=== PATIENT | male | born 2000 | race African-American/Black ===

== ENCOUNTER 2020-03-18 20:35 | Emergency (ER) ==
--- NOTE | 2020-03-18 21:07 | RAD ---
XR Chest 1 View Portable HISTORY: Altered mental status, syncope COMPARISON: None FINDINGS: The heart size is normal. The lungs are well expanded without focal areas of consolidation, pneumothorax or pleural effusions. IMPRESSION: No radiographic evidence of acute cardiopulmonary process.
[2020-03-18 21:12] LABS: #Lymphocytes 1.7 thou/uL (1.20-3.40); #Monocytes 0.6 thou/uL (0.11-0.59); #Neutrophils 3.5 thou/uL (1.40-6.50); %Basophils 0.3 % (0.0-1.0); %Eosinophils 0.8 % (0.0-10.0); %Lymphocytes 29.2 % (28.0-48.0); %Monocytes 9.9 % (0.0-4.0); %Neutrophils 59.9 % (31.0-61.0); Hemoglobin 12.9 g/dL (14.0-18.0); Mean Corpuscular HGB CONC 33.8 g/dL (32.0-36.0); Mean Corpuscular Hemoglobin 31.7 pg (25.0-35.0); Mean Corpuscular Volume 93.9 fL (78.0-98.0); Mean Platelet Volume 10.1 fL (7.4-10.4); Platelet Count 189 thou/uL (130-400); RBC Distribution Width 10.8 % (11.5-14.5); Red Blood Cell (RBC) Count 4.07 mill/uL (4.00-5.20); White Blood Cell (WBC) Count 5.9 thou/uL (4.8-10.8)
--- NOTE | 2020-03-18 21:20 | CT ---
CT BRAIN WITHOUT CONTRAST: HISTORY: Altered mental status, syncope FINDINGS: No evidence of acute infarct, hemorrhage, midline shift or abnormal extra-axial fluid collections is seen. The ventricular size is appropriate and the basilar cisterns are patent. The bony calvarium is intact. The visualized paranasal sinuses and mastoid air cells are well aerated. IMPRESSION: No CT evidence of acute intracranial process.
[2020-03-18 21:32] LABS: Acetaminophen Less than 6.0 mcg/mL (10.0-30.0); Alcohol Less than 10 mg/dL (Less than 10); Magnesium 1.6 mg/dL (1.7-2.2); Salicylate Less than 8.0 mg/dL (15.0-30.0)
[2020-03-18 21:33] LABS: ALT (SGPT) 21 U/L (8-55); AST (SGOT) 30 U/L (10-45); Alkaline Phosphatase 62 U/L (50-130); Anion Gap 11 mmol/L (10-20); BUN (Urea Nitrogen) 6 mg/dL (8.4-21.0); Bilirubin, Total 0.8 mg/dL (0.2-1.2); Calc. Creatinine Clearance 0 mL/min (70-130); Calcium 8.7 mg/dL (7.8-10.44); Carbon Dioxide 24 mmol/L (22-29); Chloride 109 mmol/L (98-107); Estimated GFR-MDRD Greater than 90; Globulin 2.6 g/dL (2.4-3.5); Glucose 84 mg/dL (70-105); Lipase 17 U/L (8-78); Potassium 3.5 mmol/L (3.5-5.1); Protein, Total 6.6 g/dL (6.0-8.3); Sodium 140 mmol/L (136-145)
[2020-03-18 21:41] LABS: Bilirubin Negative (Negative); Blood, Urine Negative (Negative); Clarity Clear (Clear); Glucose, Urine (Dipstick) Normal (Negative); Ketone, Urine Negative (Negative); Leukocyte Negative Leu/uL (Negative); Nitrite Negative (Negative); Protein, Urine (Dipstick) Negative (Neg-Trace); Specific Gravity, Urine 1.013 (1.002-1.036)
[2020-03-18 21:44] LABS: CK (CPK) 4688 U/L (30-200)
[2020-03-18 21:51] LABS: Amphetamine Not Detected (NotDetected); Barbiturates Screen Not Detected (NotDetected); Benzodiazepine Screen Not Detected (NotDetected); Cocaine Metabolite Screen Not Detected (NotDetected); Medtox Control Line Valid? VALID (VALID); Medtox Reader # READER 4; Methadone Not Detected (NotDetected); Methamphetamine Not Detected (NotDetected); Opiate Screen Not Detected (NotDetected); Oxycodone Screen Not Detected (NotDetected); Phencyclidine (PCP) Not Detected (NotDetected); THC/Cannabinoid Screen Not Detected (NotDetected); Tricyclic Screen Not Detected (NotDetected)
== END 2020-03-18 23:55 ==
LOC: ERS 20:35
DX: T67.9XXA Effect of heat and light, unspecified, initial encounter (principal); M62.82 Rhabdomyolysis; R55 Syncope and collapse; X30.XXXA Exposure to excessive natural heat, initial encounter; Y93.67 Activity, basketball
CPT/HCPCS: 36415; 70450; 71045; 80053; 80306; 80307; 81003; 82550; 83690; 83735; 84146; 84443; 84484; 85025; 85379; 93005; 96360; 96361

== ENCOUNTER 2021-02-04 19:00 | Emergency (ER) | payer SELFPAY ==
[2021-02-04] MEDS ORDERED: Lidocaine 1% PF 5 ML VIAL ONE (19:59)
[2021-02-04] MEDS ORDERED: Lidocaine 1% (PF) 30 ML VIAL ONE (20:01)
== END 2021-02-04 21:02 ==
LOC: ERS 19:00
DX: S63.283A Dislocation of proximal interphalangeal joint of left middle finger, initial encounter (principal); I10 Essential (primary) hypertension; W21.05XA Struck by basketball, initial encounter
CPT/HCPCS: 26770; J2001